=== PATIENT | female | born 1970 | race Caucasian/White ===

== ENCOUNTER 2024-05-12 14:36 | Emergency (ER) | payer OTHER ==
[~2024-05-12] VITALS: Ht 167.6 cm; Wt 58.1 kg
[2024-05-12 15:13] LABS: *BILIRUBIN,URIN NEGATIVE (NEGATIVE); *BLOOD, URINE NEGATIVE (NEGATIVE); *CLARITY,URINE CLEAR (CLEAR); *COLOR,URINE YELLOW (YELLOW); *KETONES,URINE NEGATIVE (NEGATIVE); *PROTEIN,URINE NEGATIVE (NEGATIVE); *UROBILINOGEN,URINE 0.2 E.U./dl (NORMAL); LEUKOCYTE ESTERASE ,URINE NEGATIVE (NEGATIVE); NITRITE, URINE NEGATIVE (NEGATIVE); UGLUCOSE NEGATIVE (NEGATIVE)
[2024-05-12 15:21] LABS: BASOPHILS % (AUTO) 0.3 % (0.0-2.0); EOSINOPHILS # (AUTO) 0.2 K/uL (0.0-0.7); EOSINOPHILS % (AUTO) 2.2 % (0.0-7.0); HEMATOCRIT 31.5 % (31.2-41.9); HEMOGLOBIN 10.8 g/dL (10.9-14.3); LYMPHOCYTES # (AUTO) 1.3 K/uL (0.8-4.8); LYMPHOCYTES % (AUTO) 13.1 % (20.5-51.5); MEAN CORPUSCULAR HEMOGLOBIN 29.3 uug (24.7-32.8); MEAN CORPUSCULAR HGB CONC 34 g/dL (32.3-35.6); MEAN CORPUSCULAR VOLUME 85.3 fL (75.5-95.3); MONOCYTES # (AUTO) 0.6 K/uL (0.1-1.30); MONOCYTES % (AUTO) 6.1 % (0.0-11.0); NEUTROPHILS # (AUTO) 7.7 K/uL (1.8-8.9); NEUTROPHILS % (AUTO) 78.3 % (38.5-71.5); PLATELET COUNT (AUTO) 494 K/uL (179-408); RED CELL DISTRIBUTION WIDTH 12.7 % (12.3-17.7); WHITE BLOOD COUNT (AUTO) 9.8 K/uL (3.8-11.8)
[2024-05-12 15:24] LABS: DIFFERENTIAL COMMENT 1
[2024-05-12 15:25] LABS: *URINE HCG, QUAL NEGATIVE (NEGATIVE)
[2024-05-12 15:57] LABS: ALANINE AMINOTRANSFERASE 41 U/L (14-59); ALBUMIN 3.1 g/dL (3.4-5.0); ALKALINE PHOSPHATASE 143 U/L (50-136); ASPARTATE AMINOTRANSFERASE 34 U/L (15-37); BILIRUBIN,DIRECT 0.1 mg/dL (0.0-0.2); BILIRUBIN,TOTAL 0.2 mg/dL (0.2-1.0); CALCIUM 9.8 mg/dL (8.5-10.1); CARBON DIOXIDE 31 mmol/L (21-32); CREATININE 0.5 mg/dL (0.6-1.3); GLUCOSE 96 mg/dL (74-106); TOTAL PROTEIN, SERUM 6.8 g/dL (6.4-8.2); UREA NITROGEN, BLOOD 7 mg/dL (7-18)
[2024-05-12 16:01] LABS: CHLORIDE 103 mmol/L (98-107); POTASSIUM 4.1 mmol/L (3.5-5.1); SODIUM SERUM 138 mmol/L (136-145)
[2024-05-12 16:39] LABS: LIPASE > 375 U/L (16-77)
[2024-05-12] MEDS ORDERED: LACT10SO58 PO (17:05)
[2024-05-12] MEDS ORDERED: METH150T PO (17:05)
[2024-05-12 17:15] VITALS: BP 95/64; O2SAT 95
== END 2024-05-12 17:16 | disposition home or self-care (01) ==
LOC: ER 14:36
DX: R10.84 Generalized abdominal pain (principal); K59.00 Constipation, unspecified; R10.2 Pelvic and perineal pain; Z79.899 Other long term (current) drug therapy
CPT/HCPCS: 99284; 74176; 80076; 80048; 81003; 84703; 83690; 85025; 36415; 83605; J7040; A4606; A4663